=== PATIENT | female | born 1975 | race Caucasian/White ===

== ENCOUNTER 2017-05-19 06:07 | Inpatient (IN) | payer BC ==
[~2017-05-19] VITALS: Ht 165.1 cm; Wt 94.3 kg
--- NOTE | ~2017-05-19 | HP ---
PATIENT'S NAME: MARCUS CONLEY [facility] AGE: 42 Y [address] ROOM: [place] [address] LOCATION: [facility] ADMIT DATE: 05/19/2017 History & Physical DISCHARGE DATE: FAMILY PHYSICIAN: Selina Palumbo MD ATTENDING PHYSICIAN: Jimbo LINK DATE OF SERVICE: PRINCIPAL DIAGNOSES: 1. Abdominal pain. 2. Bowel obstruction. 3. Incarcerated hernia. HISTORY: The patient is a 42-year-old female, who presents with a history of abdominal pain x24 hours followed with nausea and vomiting. The patient has had an umbilical hernia since 2006, which stays soft but becomes hard intermittently, but remains in the out position. Over the past 24 hours, it has become firm and has not gotten soft, and then the nausea and vomiting began, prompting her presentation to the hospital. She had a CT scan of her abdomen which showed an incarcerated hernia with obstruction. Therefore, I was asked to see her in consultation. Of note, her white count is 14,000 as well. PAST MEDICAL HISTORY: Significant for early diabetes. PAST SURGICAL HISTORY: Significant for tubal ligation as well as laparoscopic cholecystectomy and development of a hernia in 2006 as well. ALLERGIES: NONE. MEDICATIONS: Metformin and fish oil. SOCIAL HISTORY: She denies alcohol or substance abuse. REVIEW OF SYSTEMS: Negative otherwise noted in the history of present illness. PHYSICAL EXAMINATION: GENERAL: Morbidly obese female in mild to moderate discomfort. PATIENT'S NAME: MARCUS CONLEY [facility] AGE: 42 Y [address] ROOM: [place] [address] LOCATION: [facility] ADMIT DATE: 05/19/2017 History & Physical DISCHARGE DATE: FAMILY PHYSICIAN: Selina Palumbo MD ATTENDING PHYSICIAN: Jimbo LINK LUNGS: Clear. HEART: Regular rate and rhythm. ABDOMEN: Obese, soft, with a mass just above the lateral to the umbilicus. No guarding. No rebound. EXTREMITIES: Warm. LABORATORY VALUES: White blood cell count [id number], hemoglobin 4.5, hematocrit 41.5, and platelet count was 315,000. CAT scan of the abdomen noted to have umbilical hernia with the transverse colon involved in the hernia and the bowel obstruction. The bowel obstruction is noted to be early complete or partial obstruction. ASSESSMENT: A morbidly obese female with a longstanding umbilical hernia that is incarcerated and has evolved to complete obstruction. White blood cell count is 14,000. There is evidence of compromise of the bowel that is incarcerated in the hernia. I informed the patient that she could be treated may be the possibility of having to resect bowel or do a temporary diverting colostomy. She is aware of the risks and the benefits of the procedure and consents to the procedure. PLAN: Operative intervention as soon as possible. JIMBO LINK MD CC/modl /[id number] D: 310 T: 517 HISTORY & PHYSICAL
--- NOTE | ~2017-05-19 | OR ---
PATIENT'S NAME: MARCUS CONLEY I [facility] AGE: 42 Y [address] ROOM: [address] [address] LOCATION: [facility] ADMIT DATE: 05/19/2017 OR/Procedure Report DISCHARGE DATE: FAMILY PHYSICIAN: Selina Palumbo MD ATTENDING PHYSICIAN: Jimbo MELISSA SURGEON: Jimbo Melissa MD HEAD ROSE GROWER: DATE OF PROCEDURE: 05/19/2017 PREOPERATIVE DIAGNOSIS: Incarcerated umbilical hernia with bowel obstruction. POSTOPERATIVE DIAGNOSIS: Incarcerated umbilical hernia with bowel obstruction. PROCEDURES PERFORMED: 1. Exploratory laparotomy. 2. Lysis of adhesions. 3. Release of incarcerated bowel. 4. Repair of ventral hernia with mesh. INDICATIONS: The patient is a 42-year-old morbidly obese female who has had a ventral hernia for approximately 10 years. Twenty-four hours prior to admission, she had increased abdominal pain, nausea, and vomiting. She has never had this kind of pain before, nor she has ever had nausea and vomiting. Her white count also increased to 14,000 risk and benefits bowel obstruction was discussed with the patient including the possibility of a bowel resection and colostomy. Consent was obtained. DESCRIPTION OF PROCEDURE: anesthesia was obtained, the patient was prepped and draped in the usual sterile fashion. A standard midline skin incision was made and taken sharply down through the fascia. We were very careful to stay above the hernia and to enter the defect on the anterior side. The fascia was incised along the release of the incarcerated transverse colon. The transverse colon was carefully examined. It was found to be quite viable. No evidence of ischemia. It did appear pale initially, but pinked up immediately. We then very carefully dissected out . There were multiple adhesions attaching the colon and the omentum into the hernia sac. We carefully dissected all of these attachments away from the hernia, freeing up the hernia sac itself. We then checked hemostasis. This was found to be good. We then dropped the mesenteric colon back into the abdomen, being careful to make sure that there was no twist in the transverse colon or the small bowel. Satisfied, we had irrigated out the abdomen with several liters of fluid. We then closed the overlying fascia in a running fashion with some interrupted support using #1 double-stranded PDS as well as interrupted Prolene. We then placed a layer of mesh over the fascia of the subcutaneous tissue. This layer PATIENT'S NAME: MARCUS CONLEY I [facility] AGE: 42 Y [address] ROOM: [place] [address] LOCATION: [facility] ADMIT DATE: 05/19/2017 OR/Procedure Report DISCHARGE DATE: FAMILY PHYSICIAN: Selina Palumbo MD ATTENDING PHYSICIAN: Jimbo MELISSA of fascia was secured in place using 2-0 Vicryl suture. The subcutaneous tissue was then placed over the mesh and secured in place. We then closed the skin with stainless steel renan. She was then dressed with sterile gauze and end of procedure. . Estimated blood loss was minimal. The patient was transferred to the PACU, extubated, in stable condition. JIMBO MELISSA MD CC/modl /[id number] d: 05/19/17 1643 t: 06/22/17 1520, OPERATIVE SUMMARY
--- NOTE | ~2017-05-19 | ER ---
[facility]GE[facility] 42 Y [address] ROOM: [place] [id number] LOCATION: [facility] ADMIT DATE: 05/19/2017 ER/Outpatient Report DISCHARGE DATE: FAMILY PHYSICIAN: Selina Palumbo MD ATTENDING PHYSICIAN: Jimbo LINK TIME OF ARRIVAL: 0607 hours. TIME OF EVALUATION: 0607 hours. CHIEF COMPLAINT: Abdominal pain. HISTORY OF PRESENT ILLNESS: The patient is a 42-year-old female who presents to the emergency department today with a chief complaint of abdominal pain. She reports it started about 10 o'clock last night. She had some nausea and vomiting x2. She has an umbilical hernia that she reports has been there for quite some time. Usually, it is reducible; however, she is unable to push back in today. The pain at that site became worse. Denies any fevers. No diarrhea. Does have some urinary frequency. Pain is currently 7/10 in severity. It is worse with touch, sharp. PAST MEDICAL HISTORY: [id number] diabetes and hernia. PAST SURGICAL HISTORY: Tubal ligation and cholecystectomy. SOCIAL HISTORY: The patient denies any tobacco, alcohol, or illicit drug use. ALLERGIES: PENICILLIN. MEDICATIONS: Please see list. REVIEW OF SYSTEMS: All systems are reviewed by myself and are negative with the exception of those discussed in the HPI and Past Medical History. PHYSICAL EXAMINATION: [facility]GE[facility] 42 Y [address] ROOM: [place] [address] LOCATION: [facility] ADMIT DATE: 05/19/2017 ER/Outpatient Report DISCHARGE DATE: FAMILY PHYSICIAN: Selina Palumbo MD ATTENDING PHYSICIAN: Jimbo LINK VITAL SIGNS: Weight 94.3 kg. Blood pressure 138/71, pulse 84, respiratory rate 22, temperature 98.2, and oxygen saturation 99% on room air. GENERAL: The patient is a 42-year-old female who appears stated age, in mild- to-moderate acute distress secondary to abdominal pain. HEENT: Normocephalic, atraumatic. Pupils are equal, round, and reactive to light. Extraocular motions are intact. Mucous membranes are moist. NECK: Supple. There is no nuchal rigidity. CARDIOVASCULAR: Regular rate and rhythm. No murmurs, rubs, or gallops. LUNGS: Clear to auscultation bilaterally. No wheezes, rales, or rhonchi. ABDOMEN: Soft with umbilical hernia palpated, this is nonreducible with significant tenderness to palpation. There is no distention. Positive bowel sounds. MUSCULOSKELETAL: The patient ambulates in the room and moves all 4 extremities. SKIN: Warm and dry. LABORATORY AND X-RAY DATA: Labs and x-rays are obtained. CT scan is obtained and does reveal umbilical hernia with a defect measuring 4 x 3.7 cm with a segment of midtransverse colon. Distal hernia is decompressed. There is concern for early complete obstruction or partial obstruction. CBC: White blood cell count 14.0. Otherwise, unremarkable. Coags are normal. CMP is unremarkable. LFTs are normal. Procalcitonin is less than 0.05. Lactate is elevated at 3.3. Urinalysis is unremarkable. IMPRESSION: 1. Incarcerated umbilical hernia involving the midtransverse colon with early complete obstruction or partial obstruction. 2. Leukocytosis. 3. Lactic acidosis. 4. Initial visit. EMERGENCY DEPARTMENT COURSE: The patient was brought back to the examination room. Seen and evaluated by myself. IV was established. Laboratory analysis and imaging were obtained as described above. The patient was given 4 mg of Zofran IV as well as 5 mg of morphine IV and 1 L of normal saline IV. This has resulted in improvement in the patient's symptoms. I have discussed the case with Dr. Link, who is on- call for General Surgery. He has seen and evaluated the patient down here in the emergency department and does agree to accept the patient for further evaluation, treatment, and management. DISPOSITION: The patient is admitted under the care of Dr. Link in stable condition. PATIENT'S NAME: MARCUS CONLEY I [facility] AGE: 42 Y [address] ROOM: [place] [address] LOCATION: [facility] ADMIT DATE: 05/19/2017 ER/Outpatient Report DISCHARGE DATE: FAMILY PHYSICIAN: Selina Palumbo MD ATTENDING PHYSICIAN: Jimbo LINK DO JOSE ENRIQUE LINTON/modl /[id number] d: 05/19/17 1152 t: 05/20/17 0858, OUTPATIENT REPORT
--- NOTE | ~2017-05-19 | DS ---
PATIENT'S NAME: MARCUS CONLEY I [facility] AGE: 42 Y [address] ROOM: [address] [address] LOCATION: [facility] ADMIT DATE: 05/20/2017 Discharge Summary DISCHARGE DATE: 05/22/2017 FAMILY PHYSICIAN: Selina Palumbo MD ATTENDING PHYSICIAN: Jimbo Melissa ADMISSION DIAGNOSES: 1. Incarcerated hernia. 2. Bowel obstruction. DISCHARGE DIAGNOSES: 1. Hernia repair. 2. Bowel obstruction, resolved. HOSPITAL COURSE: The patient was admitted via the emergency room for severe abdominal pain, found to have an incarcerated hernia. The patient underwent surgical repair of the hernia with release of bowel obstruction. See op report for further details. The patient recovered as anticipated. The patient's pain is managed with current medications and is tolerable. The patient is tolerating an oral intake and is up and ambulating. Bowel function is returning. The patient's vitals have been stable since admission. The patient is ready for discharge home. DISPOSITION: Home. DISCHARGE PHYSICAL EXAMINATION: VITAL SIGNS: Blood pressure 107/66, heart rate of 90, respirations 18, and temperature 98.2. GENERAL: No apparent distress, alert, oriented. PULMONARY: Clear to auscultation. CARDIAC: Regular rate and rhythm. ABDOMEN: Incision covered without surrounding erythema or discharge. Mild central tenderness. Hypoactive with positive bowel sounds. EXTREMITIES: Peripheral pulses x4. NEURO: No focal deficit. RACHEL RUBIO MD RESIDENT FOR MD DELL COHEN/modl /[id number] d: 05/23/17 0235 t: 05/25/17 1540, DISCHARGE SUMMARY
[2017-05-19 06:41] LABS: BASOPHIL # 0.1 K/uL (0.0-0.2); BASOPHIL % 0.4 %; EOSINOPHIL # 0.1 K/uL (0.0-0.5); EOSINOPHIL % 0.6 %; HEMATOCRIT 41.2 % (33.0-46.0); HEMOGLOBIN 14.5 g/dL (10.0-15.0); IMMATURE GRANULOCYTE # 0.1 K/uL (0.0-0.3); IMMATURE GRANULOCYTE % 0.5 %; LYMPHOCYTE # 2.7 K/uL (0.8-4.0); LYMPHOCYTE % 19.4 %; MCH 31.5 pg (27.0-34.0); MCHC 35.2 gm/dL (32.0-36.5); MCV 89.6 fl (83.0-98.0); MONOCYTE # 0.6 K/uL (0.0-1.0); MONOCYTE % 4.1 %; MPV 9.9 fl (9.4-12.4); NEUTROPHIL # (ANC) 10.5 K/uL (1.8-7.8); NRBC % 0 /100WBC (0-0.00); PLATELET COUNT 315 K/uL (150-450); RDW-CV 12.3 % (11.9-14.6)
[2017-05-19 06:48] LABS: INR - (THERAPEUTIC) 0.95 (0.92-1.07); PTT 26 SECONDS (25-32)
[2017-05-19 07:02] LABS: ALBUMIN 3.6 gm/dL (3.5-5.0); ALK PHOS 45 IU/L (33-138); ALT 24 IU/L (12-78); ANION GAP 14.1 (10.0-19.0); AST 16 IU/L (10-40); BLOOD UREA NITROGEN 15 mg/dL (6-24); CALCIUM 8.9 mg/dL (8.5-10.5); CHLORIDE 106 mMol/L (96-110); CO2 23 mMol/L (22-32); CREATININE 0.6 mg/dL (0.5-1.1); ESTIMATED GFR (MDRD EQUATION) > 60; POTASSIUM 4.1 mMol/L (3.7-5.1); SODIUM 139 mMol/L (135-145); TOTAL BILIRUBIN 0.3 mg/dL (0.0-1.5); TOTAL PROTEIN 7.6 g/dL (6.0-8.4)
[2017-05-19 07:12] LABS: BILIRUBIN URINE NEGATIVE (NEGATIVE); BLOOD URINE NEGATIVE /UL (NEGATIVE); COLOR URINE YELLOW (YELLOW); GLUCOSE URINE NEGATIVE (NEGATIVE); KETONE URINE 5 mg/dL (NEGATIVE); LEUKOCYTES URINE 25 /UL (NEGATIVE); NITRITE URINE NEGATIVE (NEGATIVE); PROTEIN URINE NEGATIVE (NEGATIVE); SPEC GRAVITY URINE 1.015 (1.003-1.035); TURBIDITY URINE CLEAR (CLEAR); UROBILINOGEN URINE NORMAL (NORMAL)
[2017-05-19 07:22] LABS: BACTERIA URINE FEW (NEGATIVE); MUCUS URINE 1+ (NEGATIVE); RBC URINE RARE #/HPF (NEGATIVE); WBC URINE 0-2 #/HPF (NEGATIVE)
--- NOTE | 2017-05-19 19:15 | NUR ---
PATIENT ARRIVES FROM PACU TO FLOOR AT 1405. PATIENT PRESENTED TO ER FOR ABDOMINAL PAIN. WAS DISCOVERED TO HAVE AN INCERCERATED HERNIA. PATIENT TO OR FROM ER. PATIENT ARRIVES TO FLOOR A/OX3. UP WITH 1PA UTALIZING WALKER AT THIS TIME TO HELP STEADY GAIT DUE TO PAIN. PATIENT ON 3L O2 WHEN ARRIVES FROM PACU WEANED TO 2L. VSS. MIDLINE INCISION COVERED DRESSING C/D/I, ABDOMINAL BINDER TO ABDOMEN. VOIDING WITH OUT DIFFICULTY. DILAUDID CALL CENTER DISPATCHER INFUSING AT 0. Q15 WITH A 4MG/4HR LOCK OUT. PATIENT ABLE TO HAVE REGULAR DIET. TOLERATED CLEAR LIQUIDS WELL. PATIENT IS PLEASANT AND COOPERATIVE WITH CARES. NEEDS TO AMBULATE TONIGHT.
--- NOTE | 2017-05-20 03:16 | NUR ---
Significant Event: PT AO. VSS ON RA, AFEBRILE. DILAUDID MICRO PALEONTOLOGIST RUNNING 0.3MG DEMAND, 15MIN LOCKOUT. 2 DEMANDS AND 2 DELIVERIES THIS SHIFT. IVF RUNNING TO L FA. PT AMBULATES WITH SBA, WALKER. ABDOMINAL BINDER ON, ISLAND DRESSING TO ABDOMEN INTACT. TOLERATED SMALL AMOUNTS OF FULL LIQUID DIET, CAN ADVANCE TOLERATED. ACHS ACCUCHECKS, MILD SLIDING SCALE. IS AT BEDSIDE. Follow up: AMBULATE, PAIN CONTROL
[2017-05-20 06:10] LABS: BASOPHIL % 0.1 %; HEMATOCRIT 35.1 % (33.0-46.0); HEMOGLOBIN 12.2 g/dL (10.0-15.0); IMMATURE GRANULOCYTE % 0.3 %; LYMPHOCYTE # 3.2 K/uL (0.8-4.0); LYMPHOCYTE % 23.3 %; MCH 31.4 pg (27.0-34.0); MCHC 34.8 gm/dL (32.0-36.5); MCV 90.5 fl (83.0-98.0); MONOCYTE # 1.2 K/uL (0.0-1.0); MONOCYTE % 8.7 %; MPV 9.7 fl (9.4-12.4); NEUTROPHIL # (ANC) 9.2 K/uL (1.8-7.8); NEUTROPHIL % 67.6 %; NRBC % 0 /100WBC (0-0.00); PLATELET COUNT 322 K/uL (150-450); RBC 3.88 M/uL (3.50-5.50); RDW-CV 12.5 % (11.9-14.6); WBC 13.7 K/uL (4.0-11.0)
[2017-05-20 06:33] LABS: ALBUMIN 2.8 gm/dL (3.5-5.0); ALK PHOS 40 IU/L (33-138); ALT 17 IU/L (12-78); ANION GAP 12.8 (10.0-19.0); AST 12 IU/L (10-40); CALCIUM 7.8 mg/dL (8.5-10.5); CHLORIDE 106 mMol/L (96-110); CO2 25 mMol/L (22-32); CREATININE 0.5 mg/dL (0.5-1.1); ESTIMATED GFR (MDRD EQUATION) > 60; POTASSIUM 3.8 mMol/L (3.7-5.1); SODIUM 140 mMol/L (135-145); TOTAL PROTEIN 6.3 g/dL (6.0-8.4)
[2017-05-20 06:34] LABS: BLOOD UREA NITROGEN 5 mg/dL (6-24); TOTAL BILIRUBIN 0.6 mg/dL (0.0-1.5)
--- NOTE | 2017-05-20 10:05 | NUR ---
Introduced self/role to patient. She lives with her and 3 kids. Denied any discharge barriers. Listed right now as having no insurance but states Admissions has been by to get her insurance information. No needs, added my name to her marker board.
--- NOTE | 2017-05-20 14:52 | NUR ---
AAOx3. Cooperative with cares. Up w/SBA or family assist. IVF @75ml/hr. Dilaudid TRUCK RENTAL CLERK @0.3mg demand w/15min LO. Give Mobile 2 tabs this a.m. to reduce need for TRUCK RENTAL CLERK. Ambulated in halls x2. Up to chair. Tolerating ADA diet well. Midline abdominal island dressing d/i under abdominal binder. Oxygen initiated as sats dropped when trying to sleep. No flatus, but pt reports feeling "rumbles".
[2017-05-20] MEDS ORDERED: CINNAMON500 MG PO (16:17)
[2017-05-20] MEDS ORDERED: TYLENOL325 MG PO (16:18)
[2017-05-20] MEDS ORDERED: FISH OIL 1,2001 EAC1 PO (16:18)
[2017-05-20] MEDS ORDERED: GLUCOPHAGE500 MG PO (16:18)
[2017-05-20] MEDS ORDERED: HEADACHE RELIE1 EACH PO (16:19)
--- NOTE | 2017-05-21 03:30 | NUR ---
Pt. alert and oriented x3. Cooperative with cares. SBA. CUT OFF WORKER pump with 0.3mg, 15min lockout, and 4mg max. 2 demands this shift. Reexplained to pt. to try and use PO norco unless having breakthrough pain. Last pain pill at HS. Slept ok through shift. Tried abdominal binder but was not comfortable to pt. IVF at 75ml. Tolerating food well. Still no flatus - bowel sounds rare. Oxygen for low sats while sleeping.
--- NOTE | 2017-05-21 14:26 | NUR ---
A - PT SCREENED D/T MST. PT REPORTED 35-40# WEIGHT LOSS SINCE 2015 BUT INTENTIONAL. DEFER NFPE. INCERCERATED HERNIA W/ BOWEL OBSTRUCTION, OR 05/19. RARE BS, NOT PASSING GAS YET. HT: 165.10 CM, WT: 207#, BMI: 34.5, IBW: 56.8 KG, %IBW: 165% LABS: GLU 183, BUN 5, ALB 2.8, A1C 7.% MEDS: ZOFRAN, MILD SSI. DIET: REGULAR. INTAKE 82% X4 MEALS NOTED. PT REPORTED FAIR APPETITE. AFRAID TO EAT BECAUSE NOT PASSING GAS/BM YET. EST NEEDS: [id number] KCAL (25-30 KCAL/KG IBW), 57-68 GRAMS PROTEIN (1-1.2 GRAMS/KG IBW), FLUID NEEDS: 1ML/KCAL D - INADEQUATE ORAL INTAKE AT TIMES RELATED TO ALTERED APPETITE EVIDENCED BY PATIENT REPORT OF FAIR APPETITE. I - PT AGREED TO TRY ENSURE ENLIVE ONCE DAILY. M/E - GOAL: PT WILL BE ABLE TO TOLERATE >75% OF MEALS IN 5-7 DAYS.
--- NOTE | 2017-05-21 17:24 | NUR ---
AAOx3. Cooperative with cares. CARBIDE OPERATOR d/c'd this a.m. IV s/l'd. Tolerating ADA diet well. Up independently. [place] 2tabs given x2 for abdominal pain today and Tylenol x1 for ROBINS. Dressing to midline abdominal stapled incision changed today to gauze and tegaderm. Small amounts of serosanguinou drainage. Possible d/c tomorrow.
--- NOTE | 2017-05-22 04:13 | NUR ---
Pt. alert and oriented. RA. VSS. IV to L) forearm - saline locked. IND in room. Voiding well. Tolerating foods well. Dressing to midline. Abdominal binder to be worn as tolerated. [place] given x2 - 1 tab only. Last pain pill at 0100. Slept well throughout shift. POssible Discharge today. Pt. reporting no flatus. Cooperative with cares.
[2017-05-22] MEDS ORDERED: NORCO 5-325 TA1 EACH PO (09:33)
--- NOTE | 2017-05-22 10:44 | NUR ---
DISCHARGE: Pt. was explained discharge instructions and new medication education (see d/c summary). IV removed by primary nurse. No questions or concerns, verbalized understanding of teaching. Left with all belongings and prescriptions. Wheeled to front door by aide and driven home by .
== END 2017-05-22 10:44 | disposition disaster alternative care site (69) | DRG 354 ==
LOC: GMED 06:07 → GSDC 09:43 → GMSU 09:43 → GSDC 05-20 10:35 → GMSU 05-20 10:35
PROVIDERS: Emergency Medicine; ADMIT Surgery
PROC: 0WUF0JZ Supplement Abdominal Wall with Synthetic Substitute, Open Approach (ICD-10-PCS; principal; 2017-05-19)
DX: K43.6 Other and unspecified ventral hernia with obstruction, without gangrene (principal); E87.2 Acidosis; Z90.49 Acquired absence of other specified parts of digestive tract; E11.9 Type 2 diabetes mellitus without complications; E66.01 Morbid (severe) obesity due to excess calories
CPT/HCPCS: C1781; J0694; J0744; J1170; J1650; J2001; J2175; J2270; J2405; J3010; J3480; J7030; J7040; Q9967